=== PATIENT | female | born 1980 | race African-American/Black ===

== ENCOUNTER 2016-08-13 00:49 | Emergency (ER) | payer MEDICAID ==
[~2016-08-13] VITALS: Ht 165.1 cm; Wt 74.0 kg
[~2016-08-13 00:49] MED LIST: CLOT45CR; D-ME1TAB32; DIF15; FLUC100T PO; HUMALOG; INSU100C6; LEVEMIR; LISI10TA5 PO; METF-240; METF500C; METR500T; NYSTATIN; SIMV20TA6; SULF-104; TRAM50TA; VITAMIN D
[2016-08-13] MEDS ORDERED: KETOROLAC 60MG/2ML VIAL IM ONE (01:30)
[2016-08-13 01:50] VITALS: BP 150/99
[2016-08-13] MEDS ORDERED: ACETAMINOPHEN 325MG TABLET PO ONE (02:00)
== END 2016-08-13 02:31 | disposition home or self-care (01) ==
LOC: ER 00:49
DX: K02.9 Dental caries, unspecified (principal); I10 Essential (primary) hypertension; E78.00 Pure hypercholesterolemia, unspecified; E11.9 Type 2 diabetes mellitus without complications; Z79.4 Long term (current) use of insulin; Z88.0 Allergy status to penicillin; Z88.6 Allergy status to analgesic agent
CPT/HCPCS: 99283; J1885; Z7610

== ENCOUNTER 2016-12-02 11:28 | Emergency (ER) | payer MEDICAID ==
[~2016-12-02] VITALS: Ht 162.6 cm; Wt 55.0 kg
[~2016-12-02 11:28] MED LIST changes: -METF-240; +METF500T4
[2016-12-02 11:32] VITALS: BP 169/97
== END 2016-12-02 17:58 | disposition left against medical advice (07) ==
LOC: ER 11:28
DX: Z53.21 Procedure and treatment not carried out due to patient leaving prior to being seen by health care provider (principal)

== ENCOUNTER 2017-05-25 02:41 | Emergency (ER) | payer MEDICAID ==
[~2017-05-25] VITALS: Ht 167.6 cm; Wt 90.0 kg
[2017-05-25] MEDS ORDERED: SODIUM CHLORIDE 0.9% 1,000 ML IV ONE (09:41)
[2017-05-25] MEDS ORDERED: TRAMADOL 50MG TABLET PO ONE (09:45)
[2017-05-25 10:05] LABS: BASOPHILS % 0.9 % (0.0-2.0); EOSINOPHILS % 1.1 % (0.0-5.0); HEMATOCRIT. 44.2 % (36.0-48.0); HEMOGLOBIN. 14.2 g/dL (12.0-16.0); LYMPHOCYTES % 40.9 % (20.0-50.0); MEAN CORPUSCULAR HEMOGLOBIN 27.1 pg (28.0-32.0); MEAN CORPUSCULAR VOLUME 84.2 fL (81.0-99.0); MEAN PLATELET VOLUME 11.3 fl (7.4-10.4); MONOCYTES % 7.8 % (2.0-8.0); NEUTROPHILS % 49.3 % (40.0-76.0); PLATELET 138 x1000/uL (130-400); RED BLOOD CELL COUNT 5.25 mill/uL (4.2-5.4); RED CELL DISTRIBUTION WIDTH 13.2 % (11.6-14.6)
[2017-05-25 10:11] LABS: CLARITY URINE CLEAR (CLEAR); COLOR URINE YELLOW (YELLOW); KETONES URINE NEGATIVE (NEGATIVE); LEUKOCYTE ESTERASE URINE TRACE (NEGATIVE); NITRITE URINE NEGATIVE (NEGATIVE); OCCULT BLOOD URINE NEGATIVE (NEGATIVE); PROTEIN URINE NEGATIVE (NEGATIVE); SPECIFIC GRAVITY URINE 1.017 (1.005-1.030); UROBILINOGEN URINE 0.2 E.U./dL (0.2-1.0)
[2017-05-25 10:13] LABS: PARTIAL THROMBOPLASTIN TIME 26.6 sec (23.4-31.0); PROTHROMBIN TIME 10.1 sec (9.4-11.6)
[2017-05-25 10:19] LABS: CARBON DIOXIDE 27 mEq/L (21-32); CHLORIDE 103 mEq/L (98-107)
[2017-05-25 12:33] VITALS: BP 129/74
== END 2017-05-25 12:35 | disposition home or self-care (01) ==
LOC: ER 02:41
DX: K59.00 Constipation, unspecified (principal); E11.65 Type 2 diabetes mellitus with hyperglycemia; I10 Essential (primary) hypertension; Z88.6 Allergy status to analgesic agent; Z88.0 Allergy status to penicillin; Z88.8 Allergy status to other drugs, medicaments and biological substances; Z79.4 Long term (current) use of insulin
CPT/HCPCS: 36415; 74000; 80053; 81001; 81025; 82962; 85025; 85610; 85730; 96360; 96361; 99285; Z7610; J7030

== ENCOUNTER 2017-06-21 12:06 | Emergency (ER) | payer MEDICAID ==
[~2017-06-21] VITALS: Ht 154.9 cm; Wt 68.0 kg
[2017-06-21 19:12] LABS: CLARITY URINE TURBID (CLEAR); COLOR URINE YELLOW (YELLOW); KETONES URINE NEGATIVE (NEGATIVE); LEUKOCYTE ESTERASE URINE 1+ (NEGATIVE); NITRITE URINE NEGATIVE (NEGATIVE); OCCULT BLOOD URINE NEGATIVE (NEGATIVE); PROTEIN URINE TRACE (NEGATIVE); SPECIFIC GRAVITY URINE 1.025 (1.005-1.030); UROBILINOGEN URINE 0.2 E.U./dL (0.2-1.0)
[2017-06-21] MEDS ORDERED: SODIUM CHLORIDE 0.9% 1,000 ML IV ONE (23:18)
[2017-06-21] MEDS ORDERED: ONDANSETRON HCL 4MG/2ML VIAL IV STA (23:18)
[2017-06-21] MEDS ORDERED: ACETAMINOPHEN 500MG TABLET PO ONE (23:30)
[2017-06-21 23:48] LABS: BASOPHILS % 0.6 % (0.0-2.0); HEMATOCRIT. 43.3 % (36.0-48.0); HEMOGLOBIN. 14.3 g/dL (12.0-16.0); LYMPHOCYTES % 45.5 % (20.0-50.0); MEAN CORPUSCULAR HEMOGLOBIN 27.8 pg (28.0-32.0); MEAN CORPUSCULAR VOLUME 84.2 fL (81.0-99.0); MEAN PLATELET VOLUME 11.9 fl (7.4-10.4); MONOCYTES % 8.2 % (2.0-8.0); NEUTROPHILS % 44.7 % (40.0-76.0); PLATELET 123 x1000/uL (130-400); RED BLOOD CELL COUNT 5.15 mill/uL (4.2-5.4); RED CELL DISTRIBUTION WIDTH 13.1 % (11.6-14.6)
[2017-06-22] LABS: CARBON DIOXIDE 24 mEq/L (21-32); CHLORIDE 104 mEq/L (98-107)
[2017-06-22 01:18] VITALS: BP 148/74
== END 2017-06-22 01:19 | disposition home or self-care (01) ==
LOC: ER 12:18
DX: K29.00 Acute gastritis without bleeding (principal); N39.0 Urinary tract infection, site not specified; J45.909 Unspecified asthma, uncomplicated; E78.00 Pure hypercholesterolemia, unspecified; I10 Essential (primary) hypertension; E11.9 Type 2 diabetes mellitus without complications; Z88.0 Allergy status to penicillin; Z88.6 Allergy status to analgesic agent
CPT/HCPCS: 36415; 80053; 81001; 81025; 83690; 85025; 96361; 96374; 99284; J2405; J7030; Z7610

== ENCOUNTER 2017-08-26 19:47 | Emergency (ER) | payer MEDICAID ==
[~2017-08-26] VITALS: Ht 160 cm; Wt 73.5 kg
[2017-08-27] MEDS ORDERED: METOCLOPRAMIDE HCL 10MG/2ML VIAL IV STA (01:24)
[2017-08-27] MEDS ORDERED: MAGNESIUM/ALUMINUM HYDROXIDE/SIMETHICONE 30ML UDC PO STA (01:24)
[2017-08-27 01:51] LABS: CHLORIDE 102 mEq/L (98-107)
[2017-08-27 01:52] LABS: BASOPHILS % 0.7 % (0.0-2.0); EOSINOPHILS % 1.4 % (0.0-5.0); HEMATOCRIT. 40.7 % (36.0-48.0); HEMOGLOBIN. 13.8 g/dL (12.0-16.0); LYMPHOCYTES % 41.8 % (20.0-50.0); MEAN CORPUSCULAR HEMOGLOBIN 28.5 pg (28.0-32.0); MEAN PLATELET VOLUME 11.6 fl (7.4-10.4); MONOCYTES % 8.2 % (2.0-8.0); NEUTROPHILS % 47.9 % (40.0-76.0); PLATELET 148 x1000/uL (130-400); RED BLOOD CELL COUNT 4.84 mill/uL (4.2-5.4); RED CELL DISTRIBUTION WIDTH 13.5 % (11.6-14.6)
[2017-08-27 01:53] LABS: CLARITY URINE CLEAR (CLEAR); COLOR URINE YELLOW (YELLOW); KETONES URINE TRACE (NEGATIVE); LEUKOCYTE ESTERASE URINE NEGATIVE (NEGATIVE); NITRITE URINE NEGATIVE (NEGATIVE); OCCULT BLOOD URINE NEGATIVE (NEGATIVE); PROTEIN URINE NEGATIVE (NEGATIVE); SPECIFIC GRAVITY URINE 1.026 (1.005-1.030); UROBILINOGEN URINE 0.2 E.U./dL (0.2-1.0)
[2017-08-27 03:19] VITALS: BP 138/77
== END 2017-08-27 03:21 | disposition home or self-care (01) ==
LOC: ER 19:59
DX: R19.7 Diarrhea, unspecified (principal); J45.909 Unspecified asthma, uncomplicated; E11.9 Type 2 diabetes mellitus without complications; I10 Essential (primary) hypertension; Z79.4 Long term (current) use of insulin; Z88.0 Allergy status to penicillin; Z88.6 Allergy status to analgesic agent
CPT/HCPCS: 36415; 74018; 80053; 81003; 81025; 83690; 85025; 96374; 99285; J2765; Z7610; J7030

== ENCOUNTER 2018-04-25 00:51 | Emergency (ER) | payer MEDICAID ==
[~2018-04-25] VITALS: Ht 162.6 cm; Wt 82.0 kg
[~2018-04-25 00:51] MED LIST changes: +METF-414; -METF500T4
[2018-04-25] MEDS ORDERED: TETRACAINE 0.5% OPHTH DROPS 4ML RIGHTEYE ONE (06:30)
[2018-04-25 06:37] LABS: CLARITY URINE CLOUDY (CLEAR); COLOR URINE YELLOW (YELLOW); KETONES URINE TRACE (NEGATIVE); LEUKOCYTE ESTERASE URINE NEGATIVE (NEGATIVE); NITRITE URINE NEGATIVE (NEGATIVE); OCCULT BLOOD URINE NEGATIVE (NEGATIVE); PROTEIN URINE NEGATIVE (NEGATIVE); SPECIFIC GRAVITY URINE 1.039 (1.005-1.030)
[2018-04-25] MEDS ORDERED: FLUORESCEIN SODIUM 1MG/STRIP RIGHTEYE ONE (07:00)
[2018-04-25 08:30] VITALS: BP 165/96
== END 2018-04-25 09:05 | disposition home or self-care (01) ==
LOC: ER 00:51
DX: H57.11 Ocular pain, right eye (principal); N39.0 Urinary tract infection, site not specified; Z88.0 Allergy status to penicillin; Z88.6 Allergy status to analgesic agent; Z88.8 Allergy status to other drugs, medicaments and biological substances
CPT/HCPCS: 81025; 99283

== ENCOUNTER 2019-06-26 17:13 | Emergency (ER) | payer MEDICAID ==
[~2019-06-26] VITALS: Ht 167.6 cm; Wt 85.0 kg
[~2019-06-26 17:13] MED LIST changes: +SIMV-43; -SIMV20TA6
[2019-06-26] MEDS ORDERED: FLUORESCEIN SODIUM 1MG/STRIP BOTHEYE ONE (20:00)
[2019-06-26] MEDS ORDERED: TETRACAINE 0.5% OPHTH DROPS 4ML RIGHTEYE ONE (20:00)
[2019-06-26 21:39] VITALS: BP 108/64
== END 2019-06-26 21:40 | disposition home or self-care (01) ==
LOC: ER 17:13
DX: Z04.89 Encounter for examination and observation for other specified reasons (principal); H57.11 Ocular pain, right eye; E11.9 Type 2 diabetes mellitus without complications; Z79.4 Long term (current) use of insulin; Z88.0 Allergy status to penicillin; Z88.6 Allergy status to analgesic agent
CPT/HCPCS: 99283

== ENCOUNTER 2020-04-10 17:08 | Emergency (ER) | payer MEDICAID ==
[~2020-04-10] VITALS: Ht 165.1 cm; Wt 56.0 kg
[2020-04-10] MEDS ORDERED: ONDANSETRON 4MG ODT PO STA (18:53)
[2020-04-10] MEDS ORDERED: ACETAMINOPHEN WITH CODEINE 300/30MG TABLET PO STA (18:53)
[2020-04-10 21:11] LABS: BASOPHILS % 0.3 % (0.0-2.0); EOSINOPHILS % 0.6 % (0.0-5.0); HEMATOCRIT. 43.7 % (36.0-48.0); HEMOGLOBIN. 14.4 g/dL (12.0-16.0); LYMPHOCYTES % 25.9 % (20.0-50.0); MEAN CORPUSCULAR HEMOGLOBIN 28.4 pg (28.0-32.0); MEAN PLATELET VOLUME 11.9 fl (7.4-10.4); MONOCYTES % 9.1 % (2.0-8.0); NEUTROPHILS % 64.1 % (40.0-76.0); PLATELET 152 x1000/uL (130-400); RED BLOOD CELL COUNT 5.08 mill/uL (4.2-5.4); RED CELL DISTRIBUTION WIDTH 13.4 % (11.6-14.6)
[2020-04-10 21:18] LABS: CHLORIDE 104 mEq/L (98-107)
[2020-04-10 21:24] LABS: ETHANOL BLOOD < 10 mg/dL
[2020-04-10 21:33] LABS: HCG SCREEN NEGATIVE
[2020-04-10 22:33] VITALS: BP 145/86
[2020-04-10] MEDS ORDERED: POTASSIUM CHLORIDE 20MEQ TABLET SR PO ONE (22:45)
[2020-04-10] MEDS ORDERED: BUTALBITAL/ACETAMINOPHEN/CAFFEINE 50/325/40MG TABLET PO ONE (22:45)
== END 2020-04-10 23:31 | disposition home or self-care (01) ==
LOC: ER 17:08
DX: R51.9 Headache, unspecified (principal); E87.6 Hypokalemia; I10 Essential (primary) hypertension; J45.909 Unspecified asthma, uncomplicated; E11.9 Type 2 diabetes mellitus without complications; E78.00 Pure hypercholesterolemia, unspecified; Z88.0 Allergy status to penicillin; Z88.6 Allergy status to analgesic agent; Z88.8 Allergy status to other drugs, medicaments and biological substances; Z79.899 Other long term (current) drug therapy; Z79.4 Long term (current) use of insulin
CPT/HCPCS: 36415; 80053; 80320; 84703; 85025; 93005; 99284; Q0162; G0480

== ENCOUNTER 2022-03-11 14:45 | Emergency (ER) | payer MEDICAID ==
[~2022-03-11] VITALS: Ht 165.1 cm; Wt 68.0 kg
[~2022-03-11 14:45] MED LIST changes: +LISI10TA26 PO; -LISI10TA5 PO
[2022-03-11] MEDS ORDERED: FAMOTIDINE 20MG/2ML VIAL IV STA (15:13)
[2022-03-11] MEDS ORDERED: MAGNESIUM/ALUMINUM HYDROXIDE/SIMETHICONE 30ML UDC PO STA (15:13)
[2022-03-11] MEDS ORDERED: METOCLOPRAMIDE HCL 10MG/2ML VIAL IV STA (15:13)
[2022-03-11 16:28] LABS: BASOPHILS % 0.7 % (0.0-2.0); EOSINOPHILS % 1.5 % (0.0-5.0); HEMATOCRIT. 48.8 % (36.0-48.0); HEMOGLOBIN. 16.4 g/dL (12.0-16.0); MEAN CORPUSCULAR HEMOGLOBIN 28.5 pg (28.0-32.0); MEAN CORPUSCULAR VOLUME 84.5 fL (81.0-99.0); MONOCYTES % 14.7 % (2.0-8.0); NEUTROPHILS % 71.1 % (40.0-76.0); RED BLOOD CELL COUNT 5.77 mill/uL (4.2-5.4); RED CELL DISTRIBUTION WIDTH 13.7 % (11.6-14.6)
[2022-03-11 16:31] LABS: CHLORIDE 98 mEq/L (98-107); HCG SCREEN NEGATIVE
[2022-03-11 16:44] LABS: CLARITY URINE CLEAR (CLEAR); COLOR URINE YELLOW (YELLOW); KETONES URINE 2+ (NEGATIVE); LEUKOCYTE ESTERASE URINE 3+ (NEGATIVE); NITRITE URINE NEGATIVE (NEGATIVE); OCCULT BLOOD URINE 2+ (NEGATIVE); PH URINE 5.5 (4.5-8.0); PROTEIN URINE 3+ (NEGATIVE); SPECIFIC GRAVITY URINE 1.011 (1.005-1.030)
[2022-03-11 16:55] LABS: PLATELET ESTIMATE DECREASED
[2022-03-11 16:56] LABS: PLATELET 113 x1000/uL (130-400)
[2022-03-11 16:57] LABS: MEAN PLATELET VOLUME 11.6 fl (7.4-10.4)
[2022-03-11 16:59] LABS: PROTHROMBIN TIME 10.4 sec (9.6-11.0)
[2022-03-11] MEDS ORDERED: SODIUM CHLORIDE 0.9% 1,000 ML IV ONE (18:00)
[2022-03-11] MEDS ORDERED: CEFTRIAXONE 1 G PREMIX 50 ML IV NR (18:00)
[2022-03-11] MEDS ORDERED: NITR100C MT (18:02)
[2022-03-11 18:14] VITALS: BP 140/83
== END 2022-03-11 18:27 | disposition home or self-care (01) ==
LOC: ER 14:48
DX: R10.9 Unspecified abdominal pain (principal); I10 Essential (primary) hypertension; E78.00 Pure hypercholesterolemia, unspecified; J45.909 Unspecified asthma, uncomplicated; Z88.0 Allergy status to penicillin; Z88.6 Allergy status to analgesic agent; Z88.8 Allergy status to other drugs, medicaments and biological substances; Z79.899 Other long term (current) drug therapy
CPT/HCPCS: 36415; 74176; 80053; 81003; 83690; 84703; 85025; 85610; 87077; 87086; 96374; 96375; 99284; J2765; J3490

== ENCOUNTER 2022-03-13 16:10 | Emergency (ER) | payer MEDICAID ==
[~2022-03-13] VITALS: Ht 160 cm; Wt 73.0 kg
[~2022-03-13 16:10] MED LIST changes: +NITR100C MT
[2022-03-13 16:18] VITALS: BP 167/108
[2022-03-13] MEDS ORDERED: ACETAMINOPHEN 325MG TABLET PO NR (16:39)
[2022-03-13] MEDS ORDERED: SODIUM CHLORIDE 0.9% 1,000 ML IV ONE (16:45)
[2022-03-13] MEDS ORDERED: METOCLOPRAMIDE HCL 10MG/2ML VIAL IV NR (16:45)
[2022-03-13 17:26] LABS: HEMATOCRIT. 43.7 % (36.0-48.0); HEMOGLOBIN. 14.5 g/dL (12.0-16.0); MEAN CORPUSCULAR HEMOGLOBIN 28.1 pg (28.0-32.0); MEAN CORPUSCULAR VOLUME 84.8 fL (81.0-99.0); MEAN PLATELET VOLUME 13.1 fl (7.4-10.4); PLATELET 105 x1000/uL (130-400); RED BLOOD CELL COUNT 5.15 mill/uL (4.2-5.4); RED CELL DISTRIBUTION WIDTH 13.7 % (11.6-14.6)
[2022-03-13] MEDS ORDERED: VISCOUS LIDOCAINE 2% 15 ML UDC MM NR (17:30)
[2022-03-13] MEDS ORDERED: MAGNESIUM/ALUMINUM HYDROXIDE/SIMETHICONE 30ML UDC PO NR (17:30)
[2022-03-13 17:33] LABS: CHLORIDE 100 mEq/L (98-107)
[2022-03-13 17:42] LABS: ETHANOL BLOOD < 10 mg/dL
[2022-03-13 17:48] LABS: HCG SCREEN NEGATIVE
[2022-03-13 17:58] LABS: PLATELET ESTIMATE DECREASED
[2022-03-13] MEDS ORDERED: METO-293 MT (19:15)
[2022-03-13] MEDS ORDERED: ACET-2708 MT (19:15)
[2022-03-13] MEDS ORDERED: PROT40 MT (19:15)
[2022-03-13 19:36] LABS: PROTHROMBIN TIME 10.3 sec (9.6-11.0)
== END 2022-03-13 19:59 | disposition home or self-care (01) ==
LOC: ER 16:10
DX: R10.13 Epigastric pain (principal); M79.645 Pain in left finger(s); D72.819 Decreased white blood cell count, unspecified; S93.492A Sprain of other ligament of left ankle, initial encounter; X58.XXXA Exposure to other specified factors, initial encounter; Y93.89 Activity, other specified; Y92.89 Other specified places as the place of occurrence of the external cause; Y99.8 Other external cause status; J45.909 Unspecified asthma, uncomplicated; E11.9 Type 2 diabetes mellitus without complications; E78.00 Pure hypercholesterolemia, unspecified; I10 Essential (primary) hypertension; F12.10 Cannabis abuse, uncomplicated; Z79.899 Other long term (current) drug therapy
CPT/HCPCS: 36415; 73130; 73610; 76700; 80053; 80320; 83690; 84703; 85025; 85610; 96361; 96374; 99285; J2765; G0480

== ENCOUNTER 2023-01-29 22:29 | Emergency (ER) | payer MEDICAID, OTHER ==
[~2023-01-29] VITALS: Ht 165.1 cm; Wt 64.0 kg
[~2023-01-29 22:29] MED LIST changes: +ACET-2708 MT; +AMLO10TA80 PO; -D-ME1TAB32; -DIF15; -FLUC100T PO; +LEVE1000 PO; +LISI20TA31 PO; +METF-416 PO; +METO-293 MT; -METR500T; +PROT40 MT; +RISP1TAB97 PO; +SITA100T11 PO; -SULF-104
[2023-01-29 22:32] VITALS: BP 133/84; O2SAT 98
[2023-01-29] MEDS ORDERED: MAGNESIUM/ALUMINUM HYDROXIDE/SIMETHICONE 30ML UDC PO STA (23:34)
[2023-01-29] MEDS ORDERED: ONDANSETRON 4MG ODT PO STA (23:34)
[2023-01-30 00:25] LABS: BASOPHILS % 0.7 % (0.0-2.0); DIFFERENTIAL COMMENT 0; EOSINOPHILS % 1.2 % (0.0-5.0); HEMATOCRIT. 33.5 % (36.0-48.0); HEMOGLOBIN. 11.1 g/dL (12.0-16.0); MEAN CORPUSCULAR HEMOGLOBIN 26.9 pg (28.0-32.0); MEAN CORPUSCULAR VOLUME 81.4 fL (81.0-99.0); MEAN PLATELET VOLUME 11.8 fl (7.4-10.4); MONOCYTES % 10.1 % (2.0-8.0); PLATELET 148 x1000/uL (130-400); RED BLOOD CELL COUNT 4.11 mill/uL (4.2-5.4); RED CELL DISTRIBUTION WIDTH 17.2 % (11.6-14.6); WHITE BLOOD COUNT 4.6 x1000/uL (4.5-11.0)
[2023-01-30 00:32] LABS: CHLORIDE 107 mEq/L (98-107); INDEX HEMOLYSI 1 (1-3); INDEX ICTERIC 1 (1-4); INDEX LIPEMIC 1 (1-3); POTASSIUM 3.7 mEq/L (3.5-5.1); SODIUM 137 mEq/L (136-145)
[2023-01-30 00:35] LABS: PROTHROMBIN TIME 10.4 sec (9.6-11.0)
[2023-01-30 00:43] LABS: ALANINE AMINOTRANSFERASE 7 IU/L (13-61); ALBUMIN 3.9 g/dL (3.4-5.0); ASPARTATE AMINOTRANSFERASE 5 IU/L (15-37); BILIRUBIN TOTAL 0.4 mg/dL (0.1-1.0); CALCIUM 8.8 mg/dL (8.5-10.1); CARBON DIOXIDE 24 mEq/L (21-32); CREATININE 0.6 mg/dL (0.6-1.3); GLUCOSE 126 mg/dL (70-105); PROTEIN TOTAL 7.7 g/dL (6.0-8.3); UREA NITROGEN BLOOD 12 mg/dL (7-21)
[2023-01-30 00:51] LABS: HCG SCREEN NEGATIVE
[2023-01-30] MEDS ORDERED: MAGNESIUM/ALUMINUM HYDROXIDE/SIMETHICONE 30ML UDC PO NR (02:15)
[2023-01-30] MEDS ORDERED: ONDANSETRON 4MG ODT PO NR (02:15)
[2023-01-30 03:21] LABS: CLARITY URINE CLOUDY (CLEAR); COLOR URINE YELLOW (YELLOW); GLUCOSE URINE NEGATIVE (NEGATIVE); KETONES URINE NEGATIVE (NEGATIVE); LEUKOCYTE ESTERASE URINE 2+ (NEGATIVE); NITRITE URINE NEGATIVE (NEGATIVE); OCCULT BLOOD URINE NEGATIVE (NEGATIVE); PROTEIN URINE TRACE (NEGATIVE)
[2023-01-30] MEDS ORDERED: POLY119P2 MT (03:54)
[2023-01-30] MEDS ORDERED: MAG355OR21 MT (03:54)
[2023-01-30 04:13] VITALS: PULSE 84; RESP 16; TEMP 98.4
[2023-01-30 04:47] LABS: WBC URINE 25-50 /hpf (0-2)
[2023-01-30 04:52] LABS: SQUAMOUS EPITHELIAL CELL URINE FEW /lpf (RARE/1+)
[2023-01-30 04:55] LABS: BACTERIA URINE TRACE
== END 2023-01-30 04:13 | disposition home or self-care (01) ==
LOC: ER 22:29
DX: K29.70 Gastritis, unspecified, without bleeding (principal); K59.00 Constipation, unspecified; I10 Essential (primary) hypertension; J45.909 Unspecified asthma, uncomplicated; E11.9 Type 2 diabetes mellitus without complications; E78.00 Pure hypercholesterolemia, unspecified; F12.10 Cannabis abuse, uncomplicated; Z79.899 Other long term (current) drug therapy
CPT/HCPCS: 99284; 80053; 81025; 84703; 83690; 85025; 85610; 36415; 81003; 87086; 74018; Q0162

== ENCOUNTER 2023-03-21 12:10 | Emergency (ER) | payer MEDICAID ==
[~2023-03-21] VITALS: Ht 160 cm; Wt 70.0 kg
[~2023-03-21 12:10] MED LIST changes: +MAG355OR21 MT; +POLY119P2 MT
[2023-03-21 12:12] VITALS: BP 141/87; PULSE 77; RESP 18; TEMP 98.6; O2SAT 100
[2023-03-21] MEDS ORDERED: DIPH103G TP (12:19)
== END 2023-03-21 12:45 | disposition home or self-care (01) ==
LOC: ER 12:10
DX: L29.9 Pruritus, unspecified (principal); I10 Essential (primary) hypertension; E11.65 Type 2 diabetes mellitus with hyperglycemia; F12.10 Cannabis abuse, uncomplicated; Z79.899 Other long term (current) drug therapy; Z88.0 Allergy status to penicillin; Z88.6 Allergy status to analgesic agent; Z86.59 Personal history of other mental and behavioral disorders
CPT/HCPCS: 99283